=== PATIENT | female | born 1970 | race Caucasian/White ===

== ENCOUNTER 2020-08-15 06:01 | Day surgery (SDC) | payer OTHER ==
[2020-08-13 12:31] VITALS: BMI 23.1
[2020-08-15] MEDS ORDERED: PROPOFOL 20 ML ONE ×5 (06:54→08:33)
[2020-08-15] MEDS ORDERED: fentaNYL CITRATE 250 MCG/5 ML VIAL ONE (06:54)
[2020-08-15] MEDS ORDERED: MIDAZOLAM HCL 2 MG/2 ML SINGLE DOSE VIAL ONE ×2 (06:55)
[2020-08-15 07:01] VITALS: TEMP 98
[2020-08-15] MEDS ORDERED: ROPIVACAINE HCL 0.5% 30ML VIAL ONE (07:37)
[2020-08-15] MEDS ORDERED: KETAMINE HCL 200 MG/20 ML VIAL ONE (09:20)
[2020-08-15] MEDS ORDERED: BENZOIN/ALOE VERA/STORAX/TOLU 58 ML BOTTLE ONE (09:53)
[2020-08-15] MEDS ORDERED: ONDANSETRON 4 MG/2 ML VIAL ONE (09:56)
[2020-08-15] MEDS ORDERED: DEXAMETHASONE SOD PHOSPHATE 4 MG/1 ML VIAL ONE (09:56)
[2020-08-15] MEDS ORDERED: ONDANSETRON 4 MG/2 ML VIAL IVPUSH PRN (10:26)
[2020-08-15] MEDS ORDERED: oxyCODONE HCL 5 MG TABLET PO PRN (10:26)
[2020-08-15] MEDS ORDERED: oxyCODONE HCL 5 MG TABLET ONE (11:43)
[2020-08-15 13:08] VITALS: BP 131/75; PULSE 63
== END 2020-08-15 12:30 | disposition home or self-care (01) ==
LOC: FASU 06:01
PROVIDERS: ATTEND Orthopaedic Surgery Adult Reconstructive Orthopaedic Surgery
PROC: 0PBB0ZZ Excision of Left Clavicle, Open Approach (ICD-10-PCS; principal; 2020-08-15 09:17)
PROC: 0LQ20ZZ Repair Left Shoulder Tendon, Open Approach (ICD-10-PCS; 2020-08-15 09:17)
DX: M75.42 Impingement syndrome of left shoulder (principal); M24.812 Other specific joint derangements of left shoulder, not elsewhere classified
CPT/HCPCS: 81025; 88304-TC; 88311-TC; 94760